=== PATIENT | female | born 1990 | race African-American/Black ===

== ENCOUNTER 2024-12-31 08:20 | Outpatient (AMB) | payer OTHER, SELFPAY ==
--- NOTE | 2024-12-31 09:09 | A.OFFVIS_ITS ---
VS Expanded 12/31/24 09:23 Height 5 ft 5 in Weight 341 lb 8 oz BMI 56.8 Body Fat % 52.8 Body Fat Mass 180.6 Fat Free Mass 161.2 Visceral Fat Rating 20 Body Water % 33.8 Body Water Mass 115.6 Basal Metabolic Rate/Score 2,384 Intake Visit Reasons: [employer] [facility] BMI 56.9 Allergies amlodipine Allergy (Mild, Verified 10/12/24 11:46) HEART PALPUTATIONS lisinopril Allergy (Mild, Verified 10/12/24 11:46) Cough Medication List - Last Reconciled 12/31/24 by Nain Carlos MD albuterol sulfate 90 mcg/actuation (Ventolin HFA) 2 puffs inhalation Q6H PRN atenolol 50 mg PO DAILY citalopram (Celexa) 125 mg PO DAILY clonidine HCl mg PO fluticasone furoate-vilanterol 100-25 mcg/dose (Breo Ellipta) 1 ea inhalation DAILY fluticasone propionate 50 mcg/actuation 1 spray intranasal DAILY lorazepam (Ativan) 0.5 mg PO DAILY PRN HPI HPI [employer] [facility] BMI 56.9: Details: Start time: 9.00am, End time: 9.25am ?I spent 20 minutes speaking with the patient on the phone plus an additional 5 minutes reviewing and updating records for a total of 25 minutes HPI Comments Details: Previous weight loss efforts: lap band, sleeve (no Weight loss) Wakes up: 6am, Sleeps: 10pm Breakfast: 7-8am (Bagel, Muffin) Lunch: skips Dinner: 7pm (meat and vegetables, pizza) Snacks: 2 snacks between breakfast and dinner ([place] mix, cheese with crackers), 9-10pm (chocolate pretzels, fruits) Exercise: none Beverages: Coffee (1 12oz-cup/d with creamer and splenda), Tea: (1 cup/d with sugar), Soda: none, Juice: none, ETOH: 2/month [facility] Medical History (Updated 12/31/24 @ 09:19 by Nain Carlos MD) Anxiety Depression Sleep apnea Asthma GERD (gastroesophageal reflux disease) Hypertension Morbid obesity Surgical History (Updated 10/12/24 @ 11:49 by Brie Schultz CMA) S/P gastric sleeve procedure History of removal of laparoscopic gastric banding device Hx of laparoscopic gastric banding Hx of bladder repair surgery Family History (Updated 10/12/24 @ 11:47 by Brie Schultz CMA) Mother Anxiety Depression Hypertension High cholesterol Father High cholesterol Heart problem Son No problems noted. Social History (Updated 10/12/24 @ 11:46 by Brie Schultz CMA) Alcohol intake: current Alcohol intake frequency: a few times a month Patient Tobacco Use Status: Never used Tobacco Telehealth Telehealth Telehealth Platform: Telephone Location of provider rendering services: practice address Location of patient: address on file Patient Identification confirmed using: Name, : Yes Telehealth method: voice only Patient verbally consented to treatment: Yes Patient verbally consented to billing insurance company: Yes Patient informed of any privacy concerns related to visit: Yes Minutes spent on Phone/Video with Pt.: 25 Assessment & Plan Assessment & Plan (1) Morbid obesity: Code(s): E66.01 - Morbid (severe) obesity due to excess calories Category: Medical Plan: The patient have a very high BMI of 56. The patient had two previous unsuccessful bariatric procedures elsewhere and she is not a good candidate for additional surgery although she would qualify. In addition, she is not a candidate for Phentermine as she is has medically treated poorly controlled hypertension (on Atenolol and Clonidine) and blood pressure of 145/78. She also has sleep apnea but could not tolerate the CPAP machine and it was taken away. I believe she would be a good candidate for use of Zepbound. The patient is in agreement with this plan. Orders: Orders Hemoglobin A1c Today E66.01 - Morbid (severe) obesity due to excess calories, F32.A - Depression, unspecified, F41.9 - Anxiety disorder, unspecified, G47.30 - Sleep apnea, unspecified, I10 - Essential (primary) hypertension, J45.909 - Unspecified asthma, uncomplicated, K21.9 - Gastro-esophageal reflux disease without esophagitis Lipid Panel Today E66.01 - Morbid (severe) obesity due to excess calories, F32.A - Depression, unspecified, F41.9 - Anxiety disorder, unspecified, G47.30 - Sleep apnea, unspecified, I10 - Essential (primary) hypertension, J45.909 - Unspecified asthma, uncomplicated, K21.9 - Gastro-esophageal reflux disease without esophagitis IRON PROFILE Today E66.01 - Morbid (severe) obesity due to excess calories, F32.A - Depression, unspecified, F41.9 - Anxiety disorder, unspecified, G47.30 - Sleep apnea, unspecified, I10 - Essential (primary) hypertension, J45.909 - Unspecified asthma, uncomplicated, K21.9 - Gastro-esophageal reflux disease without esophagitis C Reactive Protein Today E66.01 - Morbid (severe) obesity due to excess calories, F32.A - Depression, unspecified, F41.9 - Anxiety disorder, unspecified, G47.30 - Sleep apnea, unspecified, I10 - Essential (primary) hypertension, J45.909 - Unspecified asthma, uncomplicated, K21.9 - Gastro- esophageal reflux disease without esophagitis Vitamin B1 Today E66.01 - Morbid (severe) obesity due to excess calories, F32.A - Depression, unspecified, F41.9 - Anxiety disorder, unspecified, G47.30 - Sleep apnea, unspecified, I10 - Essential (primary) hypertension, J45.909 - Unspecified asthma, uncomplicated, K21.9 - Gastro-esophageal reflux disease without esophagitis Vitamin D 25-OH Total Today E66.01 - Morbid (severe) obesity due to excess calories, F32.A - Depression, unspecified, F41.9 - Anxiety disorder, unspecified, G47.30 - Sleep apnea, unspecified, I10 - Essential (primary) hypertension, J45.909 - Unspecified asthma, uncomplicated, K21.9 - Gastro- esophageal reflux disease without esophagitis Insulin Today E66.01 - Morbid (severe) obesity due to excess calories, F32.A - Depression, unspecified, F41.9 - Anxiety disorder, unspecified, G47.30 - Sleep apnea, unspecified, I10 - Essential (primary) hypertension, J45.909 - Unspecified asthma, uncomplicated, K21.9 - Gastro-esophageal reflux disease without esophagitis Complete Blood Count Auto Diff Today E66.01 - Morbid (severe) obesity due to excess calories, F32.A - Depression, unspecified, F41.9 - Anxiety disorder, unspecified, G47.30 - Sleep apnea, unspecified, I10 - Essential (primary) hypertension, J45.909 - Unspecified asthma, uncomplicated, K21.9 - Gastro- esophageal reflux disease without esophagitis Comprehensive Met. Panel Today E66.01 - Morbid (severe) obesity due to excess calories, F32.A - Depression, unspecified, F41.9 - Anxiety disorder, unspecified, G47.30 - Sleep apnea, unspecified, I10 - Essential (primary) hypertension, J45.909 - Unspecified asthma, uncomplicated, K21.9 - Gastro- esophageal reflux disease without esophagitis Vitamin B12 and Folate Today E66.01 - Morbid (severe) obesity due to excess calories, F32.A - Depression, unspecified, F41.9 - Anxiety disorder, unspecified, G47.30 - Sleep apnea, unspecified, I10 - Essential (primary) hypertension, J45.909 - Unspecified asthma, uncomplicated, K21.9 - Gastro- esophageal reflux disease without esophagitis Zinc Today E66.01 - Morbid (severe) obesity due to excess calories, F32.A - Depression, unspecified, F41.9 - Anxiety disorder, unspecified, G47.30 - Sleep apnea, unspecified, I10 - Essential (primary) hypertension, J45.909 - Unspecified asthma, uncomplicated, K21.9 - Gastro-esophageal reflux disease without esophagitis Vitamin A Today E66.01 - Morbid (severe) obesity due to excess calories, F32.A - Depression, unspecified, F41.9 - Anxiety disorder, unspecified, G47.30 - Sleep apnea, unspecified, I10 - Essential (primary) hypertension, J45.909 - Unspecified asthma, uncomplicated, K21.9 - Gastro-esophageal reflux disease without esophagitis TSH reflex Free T4 Today E66.01 - Morbid (severe) obesity due to excess calories, F32.A - Depression, unspecified, F41.9 - Anxiety disorder, unspecified, G47.30 - Sleep apnea, unspecified, I10 - Essential (primary) hypertension, J45.909 - Unspecified asthma, uncomplicated, K21.9 - Gastro- esophageal reflux disease without esophagitis Ferritin Today E66.01 - Morbid (severe) obesity due to excess calories, F32.A - Depression, unspecified, F41.9 - Anxiety disorder, unspecified, G47.30 - Sleep apnea, unspecified, I10 - Essential (primary) hypertension, J45.909 - Unspecified asthma, uncomplicated, K21.9 - Gastro-esophageal reflux disease without esophagitis ECG 12 lead EKG Today E66.01 - Morbid (severe) obesity due to excess calories, F32.A - Depression, unspecified, F41.9 - Anxiety disorder, unspecified, G47.30 - Sleep apnea, unspecified, I10 - Essential (primary) hypertension, J45.909 - Unspecified asthma, uncomplicated, K21.9 - Gastro-esophageal reflux disease without esophagitis
[2024-12-31 09:23] VITALS: BMI 56.8
== END 2024-12-31 09:25 | disposition home or self-care (01) ==
LOC: HO.HBS 08:20
PROVIDERS: PCP Internal Medicine; Visit Provider Surgery
DX: E66.01 Morbid (severe) obesity due to excess calories (principal)
CPT/HCPCS: 99202